=== PATIENT | female | born 1960 | race Caucasian/White ===

== ENCOUNTER 2017-02-21 09:54 | Observation (INO) | payer BC ==
--- NOTE | 2017-02-21 10:01 | PDOC ---
[id number] 02/21/17 10:01 - History of Present Illness Initial Comments: 02/21/17 10:24 The pt is a 57 year old female with a PMH of chronic bronchitis and HTN who presents to ED brought by ambulance for confusion. The pt has been feeling confused since this morning. When she got to work she became even more confused , agitated and felt dizzy. She also states that she woke up with a headache today and assumed that is is probably due to hangover after drinking 3 glasses of wine yesterday, usually drinks 10 drinks/week. Her headache became more severe at work, 8/10, sharp, constant, left sided. It is now intermittent, 6/10 in severity. EMS was called by coworkers when they noticed her different behavior. She was found to have elevated BP to 200/110 which decreased to around 140/90. She denies losing consciousness, seizure, vision problems, weakness, numbness. She denies nausea, vomiting, diarrhea, constipation. She denies fever chills, weight changes, cold intolerance. She denies dysuria, increased frequency, urgency. She is not compliant with a medication for HTN. The pt denies using illicit drugs and taking any medications. PCP: Dr. Jennifer Hawkins Past History - Past Medical History Allergies/Adverse Reactions: Allergies Allergy/AdvReac Type Severity Reaction Status Date / Time No Known Allergies Allergy Unverified 02/21/17 10:18 Home Medications: Ambulatory Orders Olmesartan Medoxomil [Benicar (Nf)] 20 mg PO DAILY 02/21/17 Review of Systems - Review of Systems Able to Perform ROS?: Yes Comments:: 02/21/17 10:40 REVIEW OF SYSTEMS CONSTITUTIONAL: Absent: fever, chills, diaphoresis, generalized weakness, malaise, loss of appetite, weight change HEENT: Absent: rhinorrhea, nasal congestion, throat pain, throat swelling, difficulty swallowing, mouth swelling, ear pain, eye pain, visual changes CARDIOVASCULAR: Absent: chest pain, syncope, palpitations, irregular heart rate, lightheadedness , peripheral edema RESPIRATORY: Absent: cough, shortness of breath, dyspnea with exertion, orthopnea, wheezing, stridor, hemoptysis GASTROINTESTINAL: Absent: abdominal pain, abdominal distension, nausea, vomiting, diarrhea, constipation GENITOURINARY: Absent: dysuria, frequency, urgency, hesitancy, hematuria, flank pain, genital pain MUSCULOSKELETAL: Absent: myalgia, arthralgia, joint swelling, back pain, neck pain SKIN: Absent: rash, itching, pallor HEMATOLOGIC/IMMUNOLOGIC: Absent: easy bleeding, easy bruising, lymphadenopathy, frequent infections ENDOCRINE: Absent: unexplained weight gain, unexplained weight loss, heat intolerance, cold intolerance NEUROLOGIC: dizziness Absent: headache, focal weakness or paresthesias, unsteady gait, seizure, mental status changes, bladder or bowel incontinence PSYCHIATRIC: Absent: anxiety, depression *Physical Exam - Physical Exam Comments: 02/21/17 10:41 GENERAL: The patient is awake, alert, and fully oriented, in no acute distress. HEAD: Normal with no signs of trauma. EYES: PERRL, extraocular movements intact, sclera anicteric, conjunctiva clear. No ptosis. ENT: Ears normal, nares patent, oropharynx clear without exudates, moist mucous membranes. NECK: Trachea midline, full range of motion, supple. LUNGS: Breath sounds equal, clear to auscultation bilaterally, no wheezes, no crackles, no accessory muscle use. HEART: Regular rate and rhythm, S1, S2 without murmur, rub or gallop. ABDOMEN: Obese, soft, nontender, nondistended, normoactive bowel sounds, no guarding, no rebound. EXTREMITIES: 2+ pulses, warm, well-perfused, no edema. NEUROLOGICAL: Normal speech, no facial asymmetry, no tongue deviation, motor: 5 /5 in all extremities, no sensation changes, gait not observed. PSYCH: Normal mood, normal affect. SKIN: Warm, dry, normal turgor, no rashes or lesions noted Heart Score/ECG Review - History History: Slightly suspicious - Electrocardiogram EKG: Non specific repolarization disturbance - Age Age: 45-65 - Risk Factors Risk Factors Heart Score: Yes Hx Hypertension Based on the list above the patient has:: 1-2 risk factors - Troponin Troponin: </= normal limit - Score Heart Score - Total: 3 - ECG Intrepretation Rhythm: Regular Rhythm - [place]: Normal - P and VA Atrial Enlargement: Left - ST and T Non Specific ST-T Wave changes: No Prolonged Q-T Interval: No - ECG Impressions Normal ECG: Yes Ischemic Changes: No ED Treatment Course - LABORATORY CBC & Chemistry Diagram: 02/21/17 10:44 02/21/17 10:44 Medical Decision Making - Medical Decision Making 02/21/17 10:43 The pt is a 57 year old female with a PMH of HTN, bronchitis who presents complaining of confusion. We ordered EKG, cardiac profile, CBC, CMP, TG, Chol., UA, CT head w/o contrast, Oxygen suppl. CXR. NIHSS score is 1. We ordered Norvasc 5 mg ONCE for BP control and Librium 50 mg ONCE. Waiting for lab results. Will call hospitalist for admission and Dr. Rodriguez, her PCP. 02/21/17 11:28 EKG: NSR 69 bpm, left axis deviation, Qt/QTC 410/439, no ST changes, no T wave inversion, no VA prolongation. *DC/Admit/Observation/Transfer Diagnosis at time of Disposition: Dizziness
[2017-02-21 10:50] LABS: EOSINOPHIL 2.1 % (0-4.5); MCH 32.6 pg (25.7-33.7); MCHC 33.3 g/dl (32.0-36.0); MEAN CELL VOLUME 97.9 fl (80-96); MEAN PLT VOLUME 8.8 fl (7.5-11.1); NEUTROPHILS 60.2 % (42.8-82.8); PLATELET COUNT 259 K/MM3 (134-434); RDW 12.9 % (11.6-15.6); WHITE BLOOD COUNT 8.7 K/mm3 (4.0-10.0)
[2017-02-21] MEDS ORDERED: chlordiazePOXIDE HCL 25 MG CAPSULE PO ONE (11:03)
[2017-02-21] MEDS ORDERED: amLODIPine BESYLATE 5 MG TABLET (FP) PO ONE (11:04)
[2017-02-21 11:18] LABS: ALBUMIN 3.6 g/dl (3.4-5.0); ANION GAP 11 (8-16); BILIRUBIN,TOTAL 0.3 mg/dL (0.2-1.0); CALCIUM 9.1 mg/dL (8.5-10.1); CHOLESTEROL 218 mg/dL (50-200); CO2 23 mmol/L (21-32); CREATININE 0.8 mg/dL (0.55-1.02); GLUCOSE,RANDOM 101 mg/dL (74-106); INR 0.99 (0.82-1.09); LDL CHOLESTEROL (ONLY SJRH) 137 mg/dL (5-100); PROTHROMBIN TIME (PATIENT) 10.9 SEC (9.98-11.88); SGOT/AST 15 U/L (15-37); SGPT/ALT 33 U/L (12-78); TOT PROT 7.4 g/dl (6.4-8.2)
[2017-02-21 11:19] LABS: ALK PHOS 91 U/L (45-117); TROPONIN I < 0.02 ng/ml (0.00-0.05)
[2017-02-21 11:25] LABS: URINE APPEARANCE CLEAR; URINE BILIRUBIN NEGATIVE (NEGATIVE); URINE BLOOD NEGATIVE (NEGATIVE); URINE COLOR STRAW; URINE GLUCOSE (UA) NEGATIVE (NEGATIVE); URINE KETONE NEGATIVE (NEGATIVE); URINE LEUK ESTERASE NEGATIVE (NEGATIVE); URINE NITRITE NEGATIVE (NEGATIVE); URINE UROBILINOGEN NEGATIVE E.U./dl (0.2-1.0)
--- NOTE | 2017-02-21 11:29 | EKG ---
Test Reason : Blood Pressure : / mmHG Vent. Rate : 069 BPM Atrial Rate : 069 BPM P-R Int : 162 ms QRS Dur : 090 ms QT Int : 410 ms P-R-T Axes : 026 005 024 degrees QTc Int : 439 ms NORMAL SINUS RHYTHM NORMAL ECG NO PREVIOUS ECGS AVAILABLE Confirmed by SONU BAIG, HEIDI ([id number]) on 02/21/2017 11:29:20 AM Referred By: Confirmed By:HEIDI ASCENCIO MD
[2017-02-21 11:30] LABS: URINE PROTEIN 1+ (NEGATIVE)
[2017-02-21 11:44] LABS: URINE MUCUS RARE; URINE RBC 1 /hpf (0-3); URINE WBC 1 /hpf (3-5)
[2017-02-21] MEDS ORDERED: VALSARTAN 160 MG TABLET (UD) PO ONE (11:46)
[2017-02-21] MEDS ORDERED: IBUPROFEN 600 MG TABLET (FP) PO ONE ×2 (11:58→12:54)
[2017-02-21] MEDS ORDERED: VALSARTAN 80 MG TABLET (UD) ONE (12:00)
--- NOTE | 2017-02-21 12:02 | PDOC ---
Attending Attestation - Resident Resident Name: MartinLucyevettepadminiGreer - ED Attending Attestation I have performed the following: I have examined & evaluated the patient, The case was reviewed & discussed with the resident, I agree w/resident's findings & plan, Exceptions are as noted - HPI HPI: 02/21/17 11:59 57-year-old female with history of hypertension noncompliant with medications brought in by EMS with intermittent altered mental status since yesterday, found to be significantly hypertensive to 200/110 in the field. No focal deficits. - Physicial Exam PE: 02/21/17 12:01 Blood pressure 140/80 Neurologically intact - Medical Decision Making 02/21/17 12:01 Patient seen and evaluated with the resident. I agree with the overall evaluation, assessment, and management with the following summary of visit: 57-year-old female with likely hypertensive urgency/emergency, intermittent confusion/altered mental status since last night, now neurologically intact with improved blood pressure. Stroke protocol initiated, not a code peraza candidate Labs are within normal limits, EKG is nonischemic CT head shows no bleeding BP control, accepted for admission Heart Score/ECG Review #1 General ECG Interpretation: Sinus Rhythm, Normal Rate, Normal Intervals, No acute ischemic changes NIH Stroke Scale - Last Known Well Date/Time & Onset Date Last Known Well: 02/20/17 (time unclear per patient) - Initial Evaluation Level of consciousness: Alert Ask patient the month and their age: Answers both correctly Ask patient to open & close eyes; make fist and let go: Obeys both correctly Best gaze (horizontal eye movement): Normal Visual field testing: No visual field loss Facial paresis (Show teeth/raise eyebrows/close eyes tight): Normal symmetrical movement Motor Function: Left Arm: Normal Motor Function: Right Arm: Normal (extends arm 90 (or 45) degrees for 10 seconds without drift Motor Function: Left Leg: Normal (extends leg 30 degrees for 5 seconds without drift) Motor Function: Right Leg: Normal (extends leg 30 degrees for 5 seconds without drift) Limb Ataxia: No ataxia Sensory(Use pinprick test arms,legs,trunk,face/side to side): Normal Best language (Describe picture, name items, read sentences): No Aphasia Dysarthria (read several words): Normal articulation Extinction and Inattention: No abnormality - Total Score NIH Stroke Scale Score: 0
[2017-02-21 12:55] VITALS: BMI 37.3
--- NOTE | 2017-02-21 13:06 | HP ---
CHIEF COMPLAINT:Lightheadedness PCP: Dr. Jennifer Hawkins HISTORY OF PRESENT ILLNESS: This 57 year old obese female stated she developed a headache left sided last evening but after 2 advils, it subsided. She awoke again at 3 am with similar type headache and again took 2 advils returning to sleep. Upon awaking this morning, she had a mild headache but "just didn't feel right" and prepared her morning arriving to work. While at work, her peers noted she was "off" on her wording, phrases and appeared confused. A co worker called 911. She denies dizziness, blurry vision, neck pain, current headache, numbness, tingling, or recent illness. She has a history of HTN and is non compliant with her prescribed Benicar. Her physician recently put her on a generic brand and she felt like it caused her to become lightheaded and not her self so she stopped taking it about a month ago. She saw her physician 2 weeks ago and he told her she needs to resume her medications as her pressure is not on control. She was now prescribed with Brand Benicar however she has not started it as of yet. ER course was notable for: (1) headache (2) lightheaded (3) altered mental status Recent Travel: denies PAST MEDICAL HISTORY: hospitalized for cystitis in past Headaches PAST SURGICAL HISTORY:none Social History: Smoking:denies Alcohol: 10 drinks a week/ 2 anton last evening Drugs: denies Occupation: Vehicle Inspector camp counselor Family History: father , Lung CA mother , Lung CA Sister brain aneurysm with recent clipping Allergies No Known Allergies Allergy (Unverified 02/21/17 10:18) HOME MEDICATIONS: Home Medications Medication Instructions Recorded Olmesartan Medoxomil [Benicar (Nf)] 20 mg PO DAILY 02/21/17 REVIEW OF SYSTEMS CONSTITUTIONAL: Absent: fever, chills, diaphoresis, generalized weakness, malaise, loss of appetite, weight change HEENT: Absent: rhinorrhea, nasal congestion, throat pain, throat swelling, difficulty swallowing, mouth swelling, ear pain, eye pain, visual changes CARDIOVASCULAR: Absent: chest pain, syncope, palpitations, irregular heart rate, lightheadedness , peripheral edema RESPIRATORY: Absent: cough, shortness of breath, dyspnea with exertion, orthopnea, wheezing, stridor, hemoptysis GASTROINTESTINAL: Absent: abdominal pain, abdominal distension, nausea, vomiting, diarrhea, constipation, melena, hematochezia GENITOURINARY: Absent: dysuria, frequency, urgency, hesitancy, hematuria, flank pain, genital pain MUSCULOSKELETAL: Absent: myalgia, arthralgia, joint swelling, back pain, neck pain SKIN: Absent: rash, itching, pallor HEMATOLOGIC/IMMUNOLOGIC: Absent: easy bleeding, easy bruising, lymphadenopathy, frequent infections ENDOCRINE: Absent: unexplained weight gain, unexplained weight loss, heat intolerance, cold intolerance NEUROLOGIC: Absent: focal weakness or paresthesias, dizziness, vertigo, unsteady gait, seizure, bladder or bowel incontinence + for lightheaded, headache PSYCHIATRIC: Absent: anxiety, depression, suicidal or homicidal ideation, hallucinations. PHYSICAL EXAMINATION Vital Signs - 24 hr 02/21/17 02/21/17 02/21/17 10:00 10:44 10:56 Temperature 98.7 F Pulse Rate 70 Pulse Rate [ 68 Apical] Respiratory 17 17 Rate Blood Pressure 142/85 Blood Pressure 133/82 [Right Arm] O2 Sat by Pulse 98 98 98 Oximetry (%) GENERAL: Awake, alert, and fully oriented, in no acute distress. HEAD: Normal with no signs of trauma. EYES: Pupils equal, round and reactive to light, extraocular movements intact, sclera anicteric, conjunctiva clear. No lid lag. EARS, NOSE, THROAT: Ears normal, nares patent, oropharynx clear without exudates. Moist mucous membranes. NECK: Normal range of motion, supple without lymphadenopathy, JVD, or masses. LUNGS: Breath sounds equal, clear to auscultation bilaterally. No wheezes, and no crackles. No accessory muscle use. HEART: Regular rate and rhythm, normal S1 and S2 without murmur, rub or gallop. ABDOMEN: Soft, nontender, not distended, normoactive bowel sounds, no guarding, no rebound, no masses. No hepatomegaly or splenomegaly. MUSCULOSKELETAL: Normal range of motion at all joints. No bony deformities or tenderness. No CVA tenderness. UPPER EXTREMITIES: 2+ pulses, warm, well-perfused. No cyanosis. No clubbing. No peripheral edema. LOWER EXTREMITIES: 2+ pulses, warm, well-perfused. No calf tenderness. No peripheral edema. NEUROLOGICAL: Cranial nerves II-XII intact. Normal speech. Normal gait. PSYCHIATRIC: Cooperative. Good eye contact. Appropriate mood and affect. SKIN: Warm, dry, normal turgor, no rashes or lesions noted, normal capillary refill. Laboratory Tests 02/21/17 02/21/17 02/21/17 10:16 10:44 10:44 WBC 8.7 RBC 4.69 Hgb 15.3 Hct 45.9 H MCV 97.9 H MCHC 33.3 RDW 12.9 Plt Count 259 MPV 8.8 Neutrophils % 60.2 Lymphocytes % 29.2 Monocytes % 7.5 Eosinophils % 2.1 Basophils % 1.0 INR 0.99 Sodium Potassium Chloride Carbon Dioxide Anion Gap BUN Creatinine Creat Clearance w eGFR POC Glucometer [id number] Random Glucose Calcium Total Bilirubin AST ALT Alkaline Phosphatase Creatine Kinase Troponin I Total Protein Albumin Triglycerides Cholesterol Total LDL Cholesterol HDL Cholesterol Urine Color Urine Appearance Urine pH Ur Specific [place] Urine Protein Urine Glucose (UA) Urine Ketones Urine Blood Urine Nitrite Urine Bilirubin Urine Urobilinogen Ur Leukocyte Esterase Urine RBC Urine WBC Ur Epithelial Cells Urine Mucus Blood Type Antibody Screen 02/21/17 02/21/17 02/21/17 10:44 10:44 10:44 WBC RBC Hgb Hct MCV MCHC RDW Plt Count MPV Neutrophils % Lymphocytes % Monocytes % Eosinophils % Basophils % INR Sodium 142 Potassium 4.9 Chloride 108 H Carbon Dioxide 23 Anion Gap 11 BUN 20 H Creatinine 0.8 Creat Clearance w eGFR > 60 POC Glucometer Random Glucose 101 Calcium 9.1 Total Bilirubin 0.3 AST 15 ALT 33 Alkaline Phosphatase 91 Creatine Kinase 80 Troponin I < 0.02 Total Protein 7.4 Albumin 3.6 Triglycerides 131 Cholesterol 218 H Total LDL Cholesterol 137 H HDL Cholesterol 61 H Urine Color Straw Urine Appearance Clear Urine pH 6.0 Ur Specific [place] 1.015 Urine Protein 1+ H Urine Glucose (UA) Negative Urine Ketones Negative Urine Blood Negative Urine Nitrite Negative Urine Bilirubin Negative Urine Urobilinogen Negative Ur Leukocyte Esterase Negative Urine RBC 1 Urine WBC 1 Ur Epithelial Cells Rare Urine Mucus Rare Blood Type A NEGATIVE Antibody Screen Negative ASSESSMENT/PLAN: 57 yr old female with AMS and lightheaded with h/o HTN non compliant presents to ER with elevated BP Pt to be admitted for observation as her MS is at baseline currently. Pt to resume hypertension medications and to be monitored. 1. Lightheaded - monitor v/s 2. headaches - analgesia PRN 3. HTN -continue with diovan and norvasc 4. observation status -monitor for changes in AMS Visit type - Emergency Visit Emergency Visit: Yes ED Registration Date: 02/21/17 Care time: The patient presented to the Emergency Department on the above date and was hospitalized for further evaluation of their emergent condition. - New Patient This patient is new to me today: Yes Date on this admission: 02/21/17 - Critical Care Critical Care patient: No
[2017-02-21] MEDS ORDERED: ACETAMINOPHEN 325 MG TABLET (FP) PO PRN (13:18)
[2017-02-22 07:33] LABS: BASOPHIL 1.1 % (0-2.0); MCH 33.3 pg (25.7-33.7); MEAN CELL VOLUME 97.8 fl (80-96); MEAN PLT VOLUME 8.8 fl (7.5-11.1); NEUTROPHILS 45.4 % (42.8-82.8); PLATELET COUNT 239 K/MM3 (134-434); RDW 12.7 % (11.6-15.6); WHITE BLOOD COUNT 6.2 K/mm3 (4.0-10.0)
[2017-02-22 08:09] LABS: ANION GAP 6 (8-16); BILIRUBIN,TOTAL 0.5 mg/dL (0.2-1.0); CALCIUM 8.6 mg/dL (8.5-10.1); CO2 26 mmol/L (21-32); CREATININE 0.7 mg/dL (0.55-1.02); GLUCOSE,RANDOM 98 mg/dL (74-106); SGOT/AST 14 U/L (15-37); SGPT/ALT 27 U/L (12-78); TOT PROT 6.3 g/dl (6.4-8.2)
[2017-02-22 08:10] LABS: ALK PHOS 73 U/L (45-117)
[2017-02-22] MEDS ORDERED: amLODIPine BESYLATE 5 MG TABLET (FP) PO SCH (10:00)
[2017-02-22] MEDS ORDERED: VALSARTAN 160 MG TABLET (UD) PO SCH (10:00)
[2017-02-22 13:35] VITALS: BP 116/73; PULSE 81; TEMP 98.9
--- NOTE | 2017-02-22 15:35 | DS ---
Physical Exam: SUBJECTIVE: Patient seen and examined at bedside feels well asymptomatic wants to go home OBJECTIVE: Vital Signs Period Temp Pulse Resp BP Sys/[place] Pulse Ox Last 24 Hr 97.5 F-98.9 F 71-81 16-20 116-155/66-98 97-97 PHYSICAL EXAM GENERAL: The patient is awake, alert, and fully oriented, in no acute distress. HEAD: Normal with no signs of trauma. EYES: PERRL, extraocular movements intact, sclera anicteric, conjunctiva clear. ENT: Ears normal, nares patent, oropharynx clear without exudates, moist mucous membranes. NECK: Trachea midline, full range of motion, supple. LUNGS: Breath sounds equal, clear to auscultation bilaterally, no wheezes, no crackles, no accessory muscle use. HEART: Regular rate and rhythm, S1, S2 without murmur, rub or gallop. ABDOMEN: Soft, nontender, nondistended, normoactive bowel sounds, no guarding, no rebound, no hepatosplenomegaly, no masses. EXTREMITIES: 2+ pulses, warm, well-perfused, no edema. NEUROLOGICAL: Cranial nerves II through XII grossly intact. Normal speech, gait not observed. PSYCH: Normal mood, normal affect. SKIN: Warm, dry, normal turgor, no rashes or lesions noted. LABS Laboratory Results - last 24 hr 02/22/17 02/22/17 05:10 05:10 WBC 6.2 RBC 4.35 Hgb 14.5 Hct 42.6 MCV 97.8 H MCHC 34.0 RDW 12.7 Plt Count 239 MPV 8.8 Neutrophils % 45.4 D Lymphocytes % 40.1 H D Monocytes % 8.4 Eosinophils % 5.0 H D Basophils % 1.1 Sodium 142 Potassium 4.4 Chloride 110 H Carbon Dioxide 26 Anion Gap 6 L BUN 17 Creatinine 0.7 Creat Clearance w eGFR > 60 Random Glucose 98 Calcium 8.6 Total Bilirubin 0.5 D AST 14 L ALT 27 Alkaline Phosphatase 73 Total Protein 6.3 L Albumin 3.0 L HOSPITAL COURSE: Date of Admission:02/21/17 Date of Discharge: 02/22/17 57F with history of obesity and hypertension was not compliant on her olmesartan for a long time. Has hypertensive emergency with BP in the field taken by EMS 200/100. brought to ED as she had a headache and confusion. Had CT scan of head which was negative. Placed on telemetry/observation for BP monitoring. no cardiac events on monitor BP well controlled stable for discharge. Will give follow up with Dr. Vázquez. will need MRI if she continues to have headache. as of right now headache resolved when BP was controlled Minutes to complete discharge: 50 Discharge Summary Reason For Visit: HYPERTENSIVE URGENCY Current Active Problems Confusion (Acute) Dizziness (Acute) Hypertensive emergency (Acute) Hypertension (Chronic) Condition: Improved - Instructions Diet, Activity, Other Instructions: eat a low sodium diet you must take your medications stop your home blood pressure medications take your medications as prescribed follow up with your primary care doctor in one week if you experience these symptoms again go to the nearest emergency room Referrals: Ross Rodriguez MD [Primary Care Provider] - 1 Week Disposition: HOME - Home Medications Comprehensive Discharge Medication List: Ambulatory Orders Acetaminophen [Tylenol .Regular Strength -] 650 mg PO Q4H PRN #0 tablet Amlodipine Besylate [Norvasc -] 5 mg PO DAILY #30 tablet 02/22/17 Valsartan [Diovan] 160 mg PO DAILY #30 tablet 02/22/17 This patient is new to me today: Yes Date on this admission: 02/22/17 Emergency Visit: No Critical Care patient: No - Discharge Referral Referred to [facility] Yes Physician Referral: Ross Rodriguez MD ([facility])
--- NOTE | 2017-02-22 15:39 | PN ---
Teaching Attending Note Name of Resident: Minesh Weber ATTENDING PHYSICIAN STATEMENT I saw and evaluated the patient. I reviewed the resident's note and discussed the case with the resident. I agree with the resident's findings and plan as documented. Patient is feeling better, very mild headache, stated that she was not taking her blood pressure meds. since wanted to loose weight and perhaps can control the high blood pressure by loosing weight. But instead was found to have high blood pressure of SBP of 200's on the field and was found confused and didn't know where she was. and didn't know what happened. Temperature 98.9 F 02/22/17 13:33 Pulse Rate 81 02/22/17 13:33 Respiratory Rate 16 02/22/17 13:33 Blood Pressure 116/73 02/22/17 13:33 O2 Sat by Pulse Oximetry (%) 97 02/22/17 09:00 CBCD WBC 6.2 K/mm3 (4.0-10.0) 02/22/17 05:10 RBC 4.35 M/mm3 (3.60-5.2) 02/22/17 05:10 Hgb 14.5 GM/dL (10.7-15.3) 02/22/17 05:10 Hct 42.6 % (32.4-45.2) 02/22/17 05:10 MCV 97.8 fl (80-96) H 02/22/17 05:10 MCHC 34.0 g/dl (32.0-36.0) 02/22/17 05:10 RDW 12.7 % (11.6-15.6) 02/22/17 05:10 Plt Count 239 K/MM3 (134-434) 02/22/17 05:10 MPV 8.8 fl (7.5-11.1) 02/22/17 05:10 CMP Sodium 142 mmol/L (136-145) 02/22/17 05:10 Potassium 4.4 mmol/L (3.5-5.1) 02/22/17 05:10 Chloride 110 mmol/L (98-107) H 02/22/17 05:10 Carbon Dioxide 26 mmol/L (21-32) 02/22/17 05:10 Anion Gap 6 (8-16) L 02/22/17 05:10 BUN 17 mg/dL (7-18) 02/22/17 05:10 Creatinine 0.7 mg/dL (0.55-1.02) 02/22/17 05:10 Creat Clearance w eGFR > 60 (>60) 02/22/17 05:10 Random Glucose 98 mg/dL (74-106) 02/22/17 05:10 Calcium 8.6 mg/dL (8.5-10.1) 02/22/17 05:10 Total Bilirubin 0.5 mg/dL (0.2-1.0) D 02/22/17 05:10 AST 14 U/L (15-37) L 02/22/17 05:10 ALT 27 U/L (12-78) 02/22/17 05:10 Alkaline Phosphatase 73 U/L (45-117) 02/22/17 05:10 Total Protein 6.3 g/dl (6.4-8.2) L 02/22/17 05:10 Albumin 3.0 g/dl (3.4-5.0) L 02/22/17 05:10 CARDIAC ENZYMES Creatine Kinase 80 IU/L (26-192) 02/21/17 10:44 Troponin I < 0.02 ng/ml (0.00-0.05) 02/21/17 10:44 Current Medications Generic Name Dose Route Start Last Admin Trade Name Ivonne PRN Reason Stop Dose Admin Acetaminophen 650 mg 02/21/17 13:18 Tylenol - PO Q4H PRN FEVER OR PAIN Amlodipine Besylate 5 mg 02/22/17 10:00 02/22/17 09:20 Norvasc - PO 5 mg DAILY BILL Administration Valsartan 160 mg 02/22/17 10:00 02/22/17 09:20 Diovan - PO 160 mg DAILY BILL Administration Home Medications Medication Instructions Recorded Acetaminophen [Tylenol .Regular 650 mg PO Q4H PRN #0 tablet 02/22/17 Strength -] Amlodipine Besylate [Norvasc -] 5 mg PO DAILY #30 tablet 02/22/17 Valsartan [Diovan] 160 mg PO DAILY #30 tablet 02/22/17 ASSESSMENT AND PLAN: Patient is a 57 yo female with history of obesity and hypertension was not compliant with her BP meds; olmesartan that was prescribed to her by her PMD , but since wanted to loose weight , patient did not take the meds. Developed hypertensive emergency with BP in the field taken by EMS 200/100. brought to ED as she had a headache and confusion. Had CT scan of head which was negative # Hypertensive Urgency ; Bp is being controlled on Norvasc and Diovan will continue for now, patient has no more headache, most like was due to Hypertensive Urgency. #Change of mental status improved. CT is neg.for Bleed. if patient continues to have headache will refer her to neurologist and should have the MRI as an outpatient then also ECHO and Stress test as an outpatient; Follw up with for an stress test and and ECHO discussed with the patient in details.
== END 2017-02-22 17:14 | disposition home or self-care (01) ==
LOC: JER 09:54 → JERBED 12:02 → J4W 15:06
PROVIDERS: ADMIT Internal Medicine; ATTEND Internal Medicine
DX: I16.0 Hypertensive urgency (principal); R51 Headache; R41.82 Altered mental status, unspecified; E66.9 Obesity, unspecified; Z68.37 Body mass index [BMI] 37.0-37.9, adult; Z91.14 Patient's other noncompliance with medication regimen
CPT/HCPCS: 36415; 70450-TC; 71020-TC; 80053; 81003; 81015; 82465; 82550; 83718; 83721; 84478; 84484; 85025; 85610; 86850; 86900; 86901; 93005; 93010; 99285-25; G0378